=== PATIENT | male | born 1960 | race Caucasian/White ===

== ENCOUNTER 2018-09-01 06:27 | Day surgery (SDC) | payer OTHER ==
[2018-09-01] MEDS ORDERED: FENTAnyl 50 MCG/ML VIAL IV (08:30)
[2018-09-01] MEDS ORDERED: PROPOFOL 40 ML (09:04)
== END 2018-09-01 13:02 | disposition home or self-care (01) ==
LOC: GIL 06:27
DX: Z12.11 Encounter for screening for malignant neoplasm of colon (principal); D12.8 Benign neoplasm of rectum; K57.30 Diverticulosis of large intestine without perforation or abscess without bleeding; K64.4 Residual hemorrhoidal skin tags; I10 Essential (primary) hypertension
CPT/HCPCS: 45385; 88305